=== PATIENT | male | born 1990 | race Caucasian/White ===

== ENCOUNTER 2020-06-29 08:37 | Emergency (ER) | payer BC, OTHER ==
--- NOTE | 2020-06-29 08:46 | EDM.PDOC ---
ED HPI GENERAL MEDICAL PROBLEM - General Chief Complaint: Laceration Stated Complaint: cut finger Time Seen by Provider: 06/29/20 08:44 Source of Information: Reports: Patient History Limitations: Reports: No Limitations - History of Present Illness INITIAL COMMENTS - FREE TEXT/NARRATIVE: Was pushing a broom at work ([employer]). A metal broom handle broke and cut his right fourth finger. Onset: Today Location: Reports: Upper Extremity, Right Associated Symptoms: Reports: No Other Symptoms Right Finger-Ring Pain Score (Numeric/FACES): 2 - Related Data Allergies Allergy/AdvReac Type Severity Reaction Status Date / Time latex Allergy Rash Verified 06/29/20 08:47 Home Meds: Home Meds NK [No Known Home Meds] 02/21/15 [History] Past Medical History - Past Health History Medical/Surgical History: Denies Medical/Surgical History Neurological History: Reports: Head Trauma, Other (See Below) (Allegedly has a metal plate in his head) - Infectious Disease History Infectious Disease History: Reports: Chicken Pox Social & Family History - Tobacco Use Smoking Status *Q: Current Every Day Smoker - Caffeine Use Caffeine Use: Reports: Coffee, Energy Drinks, Soda, Tea ED ROS GENERAL - Review of Systems Review Of Systems: See Below Constitutional: Denies: Fever HEENT: Reports: No Symptoms Respiratory: Denies: Shortness of Breath GI/Abdominal: Denies: Nausea, Vomiting Musculoskeletal: Reports: Hand Pain Neurological: Denies: Dizziness ED EXAM, SKIN/RASH Exam: See Below Exam Limited By: No Limitations General Appearance: Alert, No Apparent Distress, Mild Distress Head: Atraumatic Respiratory/Chest: No Respiratory Distress Cardiovascular: Normal Peripheral Pulses Extremities: Normal Range of Motion, Other (Right fourth finger has a flap-like laceration on the volar surface of the distal phalanx. The patient has excellent flexion of the distal interphalangeal joint and good forceful extension. He has good sensation medially and laterally in the distal phalanx of the involved finger. There is good capillary refill in the nailbed. Laceration has no active bleeding) Neurological: Alert, Oriented. No: Sensory/Motor Deficit Psychiatric: Normal Affect, Normal Mood ED SKIN PROCEDURES - Laceration/Wound Repair Right Midline Distal Digit - 4th (Ring) Appearance: Subcutaneous, Moderately Contaminated Distal NVT: Neuro & Vascular Intact, No Tendon Injury Anesthetic Type: Local Local Anesthesia - Lidocaine (Xylocaine): 1% Plain Local Anesthetic Volume: 4cc Skin Prep: Chlorhexidine (Hibiciens), Other (Obvious dirt was removed from the wound with forceps, then Wound was repeatedly flushed with 30 mL saline) Exploration/Debridement/Repair: Wound Explored, Foreign Material Removed Closed with: Sutures Lac/Wound length In cm: 1.5 Suture Size: 4-0 # of Sutures: 4 Suture Type: Nylon, Interrupted, Simple Sterile Dressing Applied: Nurse Tetanus Status Addressed: Yes Complications: No Course - Vital Signs Last Recorded V/S: Last Vital Signs Temp 36.3 C 06/29/20 08:46 Pulse 79 06/29/20 08:46 Resp 16 06/29/20 08:46 BP 122/81 06/29/20 08:46 Pulse Ox 96 06/29/20 08:46 - Orders/Labs/Meds Meds: Medications Discontinued Medications Generic Name Dose Route Start Last Admin Trade Name Freq PRN Reason Stop Dose Admin Lidocaine HCl 5 ml 06/29/20 08:51 Xylocaine-Mpf 1% INJECT 06/29/20 08:52 ONETIME ONE Departure - Departure Time of Disposition: 09:16 Disposition: Home, Self-Care 01 Condition: Good Clinical Impression: Laceration of finger of right hand with foreign body Qualifiers: Encounter type: initial encounter Finger: ring finger Damage to nail status: without damage Qualified Code(s): S61.224A - Laceration with foreign body of right ring finger without damage to nail, initial encounter - Discharge Information Instructions: Sutured Wound Care, [id number] Referrals: PCP,None [Primary Care Provider] - Forms: ED Department Discharge Additional Instructions: Keep wound clean, dry, and covered. Try not to use the involved finger for firm grasping. Avoid any further trauma to the right fourth finger. Sutures out in 8 days. Sutures can be removed by your primary care physician, urgent care, or coming back to this emergency department. Return here if there are any signs of infection (redness, increased swelling, puslike discharge, red streaking up your hand, or fever). Sepsis Event Note (ED) - Focused Exam Vital Signs: Vital Signs Temp Pulse Resp BP Pulse Ox 06/29/20 08:46 36.3 C 79 16 122/81 96
[2020-06-29 08:47] VITALS: BP 122/81; PULSE 79
== END 2020-06-29 09:29 | disposition home or self-care (01) ==
LOC: JP.ED 08:37
DX: S61.214A Laceration without foreign body of right ring finger without damage to nail, initial encounter (principal); Z91.040 Latex allergy status; F17.200 Nicotine dependence, unspecified, uncomplicated; W26.8XXA Contact with other sharp object(s), not elsewhere classified, initial encounter; Y92.89 Other specified places as the place of occurrence of the external cause; Y99.0 Civilian activity done for income or pay
CPT/HCPCS: 12041; 99282; J2001

== ENCOUNTER 2023-01-25 07:42 | Emergency (ER) | payer BC ==
[2023-01-25 07:53] VITALS: BP 132/92; PULSE 101
[2023-01-25] MEDS ORDERED: Amoxicillin/Clavulanate K 875-125 MG Tab PO ONE (08:12)
[2023-01-25] MEDS ORDERED: Ketorolac 30 MG/ML SDV IM ONE (08:12)
== END 2023-01-25 08:40 | disposition home or self-care (01) ==
LOC: JP.ED 07:42
DX: K04.7 Periapical abscess without sinus (principal); Z91.040 Latex allergy status; Z72.0 Tobacco use
CPT/HCPCS: 96372; 99282; 99283; A9270; J1885